=== PATIENT | female | born 1985 | race Two or more races ===

== ENCOUNTER 2024-03-28 14:05 | Observation (INO) | payer MEDICAID, SELFPAY ==
[2024-03-28 14:05] VITALS: BP 117/71; PULSE 93; RESP 17; RESP 98; TEMP 36.9
[2024-03-28 14:10] VITALS: BMI 38.5
[2024-03-28 14:25] VITALS: BP 117/71; PULSE 93
--- NOTE | 2024-03-28 15:01 | P.TNLD_ITS ---
Documentation for date of: 03/28/24 Hx History Provider: Dalia Burk : 4 Para: 3 Number of Living Children: 3 # of Vaginal Deliveries:: 3 Hx Section: No Hx Vaginal Delivery Post : No Gestation Info Final ELIZA: 07/19/24 Gestational Age (weeks): 23 Gestational Age (days): 6 Complaint Complaint Complaint: Vaginal bleeding Medical History Medical History Medical History: Pt noticed a small amount of VB today. No UCs, NO LOF, No r ecent intercourse. On presentation, Pad is dry. Hx PPH with first delivery with transfusion. 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 Systems Assessment Systems With in Normal Limits: Yes Contractions Evaluation Contractions Monitor Mode: External Contraction Frequency: None Resting Tone Palpate: Soft Contraction Comment: No UCs seen on NST Vaginal Bleeding Vaginal Bleeding Amount: None Heart Monitoring Heart Rate Assessment Monitor Mode: External FHR Baseline: 120 Variability: Minimal Monitor Decelerations: None FHR Pattern Category: Category l Movement Reported: Yes NST Reactive: Yes WNL for GA: Yes Assessment Comment: Reassuring FHTs for 23 weeks Amniotic Membranes Amniotic Membranes Amniotic Membrane Status: Intact Social risk screen Social Risk Screening Observed or verbalized signs of abuse or neglect: No Behavioral Health Professional Referral: No
== END 2024-03-28 15:18 | disposition home or self-care (01) ==
PROVIDERS: Admitting Provider Obstetrics & Gynecology; Visit Provider Obstetrics & Gynecology
DX: O46.92 Antepartum hemorrhage, unspecified, second trimester (principal); Z3A.23 23 weeks gestation of pregnancy
CPT/HCPCS: 59025; 59899

== ENCOUNTER 2024-04-01 17:54 | Observation (INO) | payer MEDICAID, SELFPAY ==
[2024-04-01] VITALS (12 sets, daily range): BP systolic 118; BP diastolic 71; PULSE 78–86; RESP 18–98; TEMP 36.8; O2SAT 97–98; BMI 37.6
--- NOTE | 2024-04-01 18:31 | XR_ITS ---
Examination: age limited TECHNIQUE: Limited transabdominal sonographic images pelvis INDICATIONS: Vaginal bleeding beginning 5 days ago FINDINGS: No placental abruption Small placental venous britt 18 x 11 x 9 mm IMPRESSION: Negative for placental abruption
--- NOTE | 2024-04-01 18:32 | XR_ITS ---
Examination: OB Transvaginal ultrasound of the pelvis, complete Technique: Transvaginal sonographic images pelvis performed using anderson scale imaging Exam date and time: April 01, 2024 at 7:24 PM Indications: Vaginal bleeding for 5 days FINDINGS: Cervix 3.8 cm IMPRESSION: Cervix 3.8 cm closed
[2024-04-01 19:44] LABS: Collection Type, Urine Clean Catch
[2024-04-01 19:47] LABS: Bilirubin,Urine Negative (Negative); Blood,Urine Negative (Negative); Clarity,Urine Clear (Clear/Hazy); Color,Urine Lt-Yellow (Lt Yel-Yel); Glucose, Urine Negative (Negative); Ketones,Urine Negative (Negative); Leukocyte Esterase,Urine Positive (Negative); Nitrite,Urine Negative (Negative); Protein,Urine Negative (Neg - Trace); RBC,Urine 1 /hpf (0-3); Specific Gravity,Urine 1.011 (1.001-1.035); Squamous Epithelial Cell,Urine 3 /hpf (0-5); Urobilinogen,Urine Negative mg/dL (0.0-1.0); WBC,Urine 3 /hpf (0-5)
== END 2024-04-01 21:15 | disposition home or self-care (01) ==
PROVIDERS: Admitting Provider Obstetrics & Gynecology; Visit Provider Obstetrics & Gynecology
DX: O46.92 Antepartum hemorrhage, unspecified, second trimester (principal); Z3A.24 24 weeks gestation of pregnancy
CPT/HCPCS: 59025; 59899; 76815; 76817; 81001

== ENCOUNTER 2024-07-10 14:49 | Outpatient (RCR) | payer MEDICAID, SELFPAY ==
--- NOTE | 2024-06-12 15:48 | XR_ITS ---
Examination: Biophysical profile, ultrasound Date and time of exam: June 12, 2024 1614 hrs. Indications: Diagnosis advanced maternal age, diagnosis maternal obesity Technique: Multiple transabdominal sonographic images of the pelvis abdomen obtained. Attention is directed to the breathing movement, gross body movement, amniotic fluid volume and tone. Findings: Amniotic fluid index 11.1 cm Total biophysical profile is 8 of 8. breathing movement is 2. Gross body movement is 2. tone is 2. Qualitative amniotic fluid volume is 2 Impression: Biophysical profile is 8 of 8.
[2024-06-12 16:31] VITALS: BP 125/83; PULSE 85; RESP 16; TEMP 36.7
--- NOTE | 2024-06-19 16:06 | XR_ITS ---
Examination: Biophysical profile, ultrasound Date and time of exam: June 19, 2024 at 1612 hrs. Indications: Diagnosis advanced maternal age Technique: Multiple transabdominal sonographic images of the pelvis abdomen obtained. Attention is directed to the breathing movement, gross body movement, amniotic fluid volume and tone. Findings: Amniotic fluid index 7.1 cm Total biophysical profile is 8 of 8. breathing movement is 2. Gross body movement is 2. tone is 2. Qualitative amniotic fluid volume is 2 Impression: Biophysical profile is 8 of 8.
[2024-06-19 16:47] VITALS: BP 122/79; PULSE 86; RESP 16; TEMP 36.7
--- NOTE | 2024-06-26 15:59 | XR_ITS ---
Examination: Biophysical profile, ultrasound Date and time of exam: June 26, 2024 1601 hours INDICATIONS: Diagnosis maternal obesity, diagnosis advanced maternal age Technique: Multiple transabdominal sonographic images of the pelvis abdomen obtained. Attention is directed to the breathing movement, gross body movement, amniotic fluid volume and tone. Findings: Amniotic fluid index 10.4 cm Total biophysical profile is 8 of 8. breathing movement is 2. Gross body movement is 2. tone is 2. Qualitative amniotic fluid volume is 2 Impression: Biophysical profile is 8 of 8.
[2024-06-26 16:27] VITALS: BP 118/71; PULSE 83; RESP 16; TEMP 36.7
--- NOTE | 2024-07-03 14:21 | XR_ITS ---
Examination: Biophysical profile, ultrasound Date and time of exam: July 03, 2024 1428 hours INDICATIONS: Diagnosis maternal obesity, diagnosis advanced maternal age Technique: Multiple transabdominal sonographic images of the pelvis abdomen obtained. Attention is directed to the breathing movement, gross body movement, amniotic fluid volume and tone. Findings: Amniotic fluid index 12.7 cm Total biophysical profile is 8 of 8. breathing movement is 2. Gross body movement is 2. tone is 2. Qualitative amniotic fluid volume is 2 Impression: Biophysical profile is 8 of 8.
[2024-07-03 14:51] VITALS: BP 132/77; PULSE 77; RESP 16; TEMP 36.8
--- NOTE | 2024-07-10 14:54 | XR_ITS ---
Examination: Biophysical profile, ultrasound Date and time of exam: July 10, 2024 1501 hours INDICATIONS: Diagnosis advanced maternal age, diagnosis maternal obesity complicating Technique: Multiple transabdominal sonographic images of the pelvis abdomen obtained. Attention is directed to the breathing movement, gross body movement, amniotic fluid volume and tone. Findings: Amniotic fluid index 18.6 cm Total biophysical profile is 8 of 8. breathing movement is 2. Gross body movement is 2. tone is 2. Qualitative amniotic fluid volume is 2 Impression: Biophysical profile is 8 of 8.
[2024-07-10 15:18] VITALS: BP 114/70; PULSE 81; RESP 16; TEMP 36.7
== END 2024-07-10 23:59 | disposition home or self-care (01) ==
LOC: S4S1 14:49
PROVIDERS: Referring Provider Nurse Practitioner Women's Health; Visit Provider Nurse Practitioner Women's Health
DX: O09.523 Supervision of elderly multigravida, third trimester (principal); Z3A.38 38 weeks gestation of pregnancy
CPT/HCPCS: 59025; 76819

== ENCOUNTER 2024-07-17 18:20 | Inpatient (IN) | payer MEDICAID, SELFPAY ==
[2024-07-17] VITALS (18 sets, daily range): BP systolic 120–123; BP diastolic 67–76; PULSE 70–87; TEMP 37.1; O2SAT 97–99; BMI 39.3
--- NOTE | 2024-07-17 19:32 | XR_ITS ---
Examination: Complete OB ultrasound greater than 14 weeks Date and time of exam: July 17, 2024 2045 hours INDICATIONS: Preop labor induction, and known presentation unknown weight Findings: Viable intrauterine single fetus with single amniotic sac presentation cephalic Cardiac motion 140 BPM Placenta anterior grade 2 Umbilical cord insertion 3 vessel seen Amniotic fluid index 8.2 cm spine maternal left Cervix 3.4 cm Ovaries obscured by bowel gas. Composite estimated gestational age based on BPD, head circumference, abdominal circumference, femur length is 39 weeks 4 days Estimated weight 3877.6 g. Survey of intracranial anatomy, spinal anatomy, abdominal anatomy, four-chamber heart performed with no abnormalities identified. Impression: Viable intrauterine gestation cephalic presentation.
[2024-07-17 19:38] LABS: Basophils % (Auto) 0 % (0-2.5); Eosinophils % (Auto) 1 % (0-10); Hemoglobin 12.5 g/dL (12.0-16.0); Immature Granulocytes % (Auto) 2 % (0-0); Immature Granulocytes Auto 0.13 Thou/mm3 (0.00-0.00); Lymphocytes # (Auto) 1.8 Thou/mm3 (1.0-4.8); Lymphocytes % (Auto) 25 % (10-50); Mean Corpuscular HGB Conc 34.7 g/dl (31.0-37.0); Mean Corpuscular Hemoglobin 32.8 pg (25.0-35.0); Mean Corpuscular Volume 95 fL (80-100); Monocytes # (Auto) 0.4 Thou/mm3 (0.0-0.8); Monocytes % (Auto) 6 % (0-12); Neutrophils # (Auto) 4.8 Thou/mm3 (1.8-7.7); Neutrophils % (Auto) 67 % (37-80); Nucleated Red Blood Cell % 0 /100 WBC (0); Platelet Count 154 Thou/mm3 (140-440); RDW Standard Deviation 49.8 fL (36.4-46.3); Red Blood Count 3.81 Miln/mm3 (4.00-5.20); White Blood Count 7.2 Thou/mm3 (3.6-11.0)
--- NOTE | 2024-07-17 20:00 | ESHP_ITS ---
Documentation for date of: 07/17/24 OB Labor/Induct. HPI History of Present Illness Chief complaint: 39 y/o 39w 5d presents to L&D for IOL due to AMA and Obesity : 4 Para: 3 Term pregnancies: 3 pregnancies: 0 Living children: 3 History of Abortions: Spontaneous and Elective: 0 History of Vaginal deliveries: 3 History of sections: No History of : No Date of last menstrual period: 10/13/23 ELIZA: 07/19/24 Gestational Age (weeks): 39 Gestational Age (days): 5 Gestational age based on last menstrual period: 39 Indication for induction: medical complication (AMA and Obesity ) History of present illness: 39 y/o 39w 5d presents to L&D for IOL due to AMA and Obesity. Pt is 3/60/-3 vetrex, GBS is neg. Pt's has been complicated by AMA of 40 and Obesit y. Pt has a hx of NVDx3, last delivery pt had a PPH with blood transfusion and retained placenta. Pt was seen by [facility] on 06/13/24 fetus measuring 83%ile, EFW 2870g, AC >90%ile. LGA fetus Pt has been having weekly NST/BPP since 34 weeks and all have been normal. EFW 3900g History of Present Dating criteria: LMP confirmed by 1st trimester US Adequate Care: Yes Ultrasounds: normal 1st trimester US and normal mid trimester US Obstetrical complications: other (AMA and Obesity ) Medical complications: none Labs Maternal Blood Type: O Pos Labs: Positive: Rubella Titre, Negative: RPR, Hepatitis B, HIV, Chlamydia, Gonorrhea and Group Beta Strep and Unknown: Herpes Type 1, Herpes Type 2 and Covid-19 Review of Systems Review of Systems Systems Reviewed: All systems reviewed, normal except as documented Past Medical History Surgical History SURGICAL: Negative Section Meds Home Medications and Allergies Home Medications ?Medication ?Instructions ?Recorded ?Confirmed ?Type aspirin 81 mg chewable tablet 1 tab PO QDAY 03/28/24 0 07/17/24 History folic acid 1 mg tablet 1 mg PO QDAY 03/28/24 History vits no.130-ferrous fum 1 tab PO QDAY 5 07/17/24 History 27 mg iron-folic acid 800 mcg tablet ( Vitamin) Allergies Allergy/AdvReac Type Severity Reaction Status Date / Time No Known Drug Allergies Allergy Verified 07/17/24 19:28 OB Exam Physical Exam Vital signs: Pulse BP 81 122/71 07/17/24 19:30 07/17/24 19:30 Constitutional Constitutional: no acute distress Routine HEENT Exam Head: Present normocephalic and atraumatic Eye: Present EOMI, PERRL and normal accommodation ENT: Present mucous membranes moist Routine Neck Exam Neck: Present full ROM Routine Respiratory Exam Respiratory: Absent respiratory distress Routine Cardiovascular Exam Cardiovascular: Present RRR Routine Abdominal Exam Abdominal: Present soft Comments: Gravid Uterus EFW 3900g Routine Exam External: Present normal urethra appearance; Absent lesions Detailed Labor and Delivery Exam Dilation (cm): 3 Effacement (%): 60 Cervix position: posterior station: -3 Consistency: soft Presentation: Vertex Membranes: intact Baseline heart rate: 130 monitor accelerations: 15x15 monitor decelerations: None maintenance coordinator variability: Moderate (11-25) Contraction frequency (min): occasional Routine Extremities Exam Extremities: Present full ROM Routine Back/Spine/Pelvis Exam Back/Spine: Present full ROM Routine Skin Exam Skin: Present intact, dry and warm Routine Neurological Exam Neurological: Present alert, oriented X3 and CN II-XII intact Routine Psychiatric Exam Psychiatric: Present normal affect and normal thought process OB Results Labs 07/17/24 18:40 07/17/24 19:50 Labs: Short CBC 07/17/24 Range/Units 18:40 WBC 7.2 (3.6-11.0) Thou/mm3 Hgb 12.5 (12.0-16.0) g/dL Hct 36.0 (36.0-46.0) % Plt Count 154 (140-440) Thou/mm3 OB Assessment & Plan Assessment and Plan (1) Encounter for induction of labor: Status: Acute (2) with 39 completed weeks gestation: Status: Acute (3) History of hemorrhage: Status: Acute (4) Large for gestational age fetus affecting mother, antepartum, third trimester, single gestation: Status: Acute Additional Plan Induction method: per misoprostol protocol Plan: induction, anticipate NVD and consult MD obrien Additional Plan Comment: Routine admit orders 2 units pRBCs on hold Start a 2nd IV PPH meds at bedside US to confirm head and EFW Continuous EFM Consult anesthesia for an epidural
[2024-07-17 21:06] LABS: Collection Type, Urine Clean Catch
[2024-07-17] MEDS: MISOPROSTOL 50 mCg TABLET PO (21:29)
[2024-07-17 21:48] LABS: Fibrinogen 523 mg/dL (175-375); INR 0.9 (0.9-1.3); Prothrombin Time 9.8 Seconds (9.0-12.2)
[2024-07-17 21:50] LABS: Bilirubin,Urine Negative (Negative); Blood,Urine 2+ (Negative); Clarity,Urine Clear (Clear/Hazy); Color,Urine Lt-Yellow (Lt Yel-Yel); Glucose, Urine Negative (Negative); Ketones,Urine Negative (Negative); Leukocyte Esterase,Urine Negative (Negative); Nitrite,Urine Negative (Negative); PH,Urine 6.5 (5.0-7.0); Protein,Urine Negative (Neg - Trace); RBC,Urine < 1 /hpf (0-3); Specific Gravity,Urine 1.014 (1.001-1.035); Squamous Epithelial Cell,Urine 2 /hpf (0-5); Urobilinogen,Urine Negative mg/dL (0.0-1.0); WBC,Urine 1 /hpf (0-5)
[2024-07-17] MEDS: RINGERS LACTATED 1000 ML 1,000 ML 100 ML IV (22:12)
[2024-07-17 22:53] LABS: Creatinine,Random Urine 72 mg/dL (30-125); Protein Total, Random Urine 16 mg/dL (1-14)
[2024-07-17 22:57] LABS: Alanine Aminotransferase 23 U/L (10-49); Albumin, Serum 3.9 gm/dL (3.5-5.0); Albumin/Globulin Ratio 1.5 (1.2-2.2); Alkaline Phosphatase 173 U/L (46-116); Anion Gap 17 (7-16); Aspartate Amino Transferase 31 U/L (0-34); BUN/Creatinine Ratio 15 Ratio (12-20); Bilirubin,Total 0.3 mg/dL (0.3-1.2); Blood Urea Nitrogen 15 mg/dL (9-23); Calcium 9.1 mg/dL (8.3-10.6); Calcium (Corrected) 9.2 mg/dL (8.5-10.1); Carbon Dioxide 19.4 mMol/L (20.0-31.0); Chloride 106 mMol/L (98-107); Estimated Creatinine Clearance 84.7 mL/min (>60); Globulin 2.6 gm/dL (2.3-3.5); Glucose 158 mg/dL (74-106); Osmolality,Calculated 286 (275-295); Potassium 4.1 mMol/L (3.4-5.1); Sodium 142 mMol/L (136-145); Total Protein 6.5 gm/dL (5.7-8.2); Uric Acid 5.8 mg/dL (3.1-7.8); eGFR > 60 See Note
[2024-07-17 23:16] LABS: Syphilis Nonreactive (Nonreactive)
[2024-07-18] VITALS (50 sets, daily range): BP systolic 113–142; BP diastolic 76–116; PULSE 71–119; RESP 17–20; TEMP 36.6–37.1; O2SAT 91–100
[2024-07-18] MEDS: OXYTOCIN in NS 20 units 20 UNIT/1,000 ML BAG 125 UNIT IV (03:05)
[2024-07-18] MEDS: TRANEXAMIC ACID 1,000 MG IVPB 1,000 MG/100 ML BAG 200 MG IV ×2 (03:07→03:45)
--- NOTE | 2024-07-18 03:20 | PD.LDDELS ---
Data (Corey) Data Hx Section: No Maternal Blood Type: O Pos Rubella Titre: Positive RPR: Non-reactive Labs: Negative: RPR, Hepatitis B, HIV, Chlamydia, Gonorrhea and Group Beta Strep and Unknown: Herpes Type 1 and Herpes Type 2 : 4 Para: 3 Term: 3 : 0 Livin Abortions: Spontaneous & Theraputic: 0 Delivery Data (Corey) Labor Data Initiation of labor: Induction Induction/Augmentation Agent: Cytotec-PO ROM date: 07/18/24 ROM time: 02:49 Amniotic membrane rupture type: Artificial Amniotic fluid description: Clear Delivery Data EDC: 07/19/24 EDC calculated by:: LMP/early US confirmation Onset of labor date: 07/18/24 Onset of labor time: 01:35 Complete dilation date: 07/18/24 Complete dilation time: 02:35 Doucette delivery date: 07/18/24 Doucette delivery time: 02:51 Gestational age (weeks): 39 Gestational age (days): 6 Placenta delivery date: 07/18/24 Stage 1 total time: Labor - Stage 1 Duration 1 hours and 0 minutes Delivered by: Dalia Burk Delivery nurse: daja Fenton nurse: Annette Program Director Substance Abuse at delivery: No Support person(s) at delivery: FOB at bedside Delivery Method Delivery method: Normal Vaginal Delivery Presentation: Vertex position: OA Anesthesia Type Anesthesia Type: Local Anesthesia type: Local Placenta Placenta delivery description: Spontaneous Cord blood sent to lab: Yes cord blood collection: Cord Blood Type Episiotomy Episiotomy description: None Lacerations #1: Perineal: 1st degree Perineal repair Sutures used for repair: 3.0 Vicryl (CT) EBL Estimated blood loss (ml): 400 Umbilical Cord cord description: 3 Vessels, Nuchal Cord and Loose Additional Procedures CNM in room open patient was complete. AROM performed clear fluids noted. After a few pushes patient had an of a viable female . 's head delivered with a loose nuchal cord easily reduced. Then 's anterior shoulder delivered with gentle downward traction subsequent deliver the posterior shoulder and the body without complications. Infant placed on mother's abdomen. Vigorous cry upon delivery. Cord was clamped. Three-vessel cord noted. Placenta expelled intact. Patient sustained a first-degree perineal laceration. Repaired using a 3-[address] suture. Excellent hemostasis achieved after vigorous fundal massage and removal of clots from the posterior fornix. EBL 400. Sponge and needle count correct. Mother and baby stable, skin to skin and bonding in LDR. Doucette Data (Corey) Data order: 1 's gender: Female Identification band number: [id number] weight (gms): 3715 g 1 minute: 8 5 minutes: 9
[2024-07-18] MEDS: MINERAL OIL 30 ML UDC TOP (03:29)
[2024-07-18] MEDS: LIDOCAINE HCL 1% 20 ML VIAL INFL (03:29)
[2024-07-18] MEDS: BENZO/LANO/ALOE (Dermoplast) 60 GM CAN 1 SPRAY TOP (03:31)
[2024-07-18] MEDS: METHYLERGONOVINE INJ 0.2 MG/ML VIAL IM (03:32)
[2024-07-18] MEDS: IBUPROFEN TAB 400 MG TABLET 800 MG PO ×2 (03:35→18:27)
[2024-07-18] MEDS: DOCUSATE SOD 100 MG CAPSULE PO (08:32)
[2024-07-18] MEDS: HYDROcodone/APAP 5/325 TABLET 1 TAB PO (08:36)
[2024-07-18 09:59] LABS: Basophils % (Auto) 0 % (0-2.5); Eosinophils % (Auto) 0 % (0-10); Hematocrit 26.6 % (36.0-46.0); Hemoglobin 9.3 g/dL (12.0-16.0); Immature Granulocytes % (Auto) 1 % (0-0); Lymphocytes # (Auto) 1.4 Thou/mm3 (1.0-4.8); Lymphocytes % (Auto) 13 % (10-50); Mean Corpuscular Hemoglobin 32.3 pg (25.0-35.0); Mean Corpuscular Volume 92 fL (80-100); Monocytes # (Auto) 0.6 Thou/mm3 (0.0-0.8); Monocytes % (Auto) 6 % (0-12); Neutrophils # (Auto) 8.5 Thou/mm3 (1.8-7.7); Neutrophils % (Auto) 79 % (37-80); Nucleated Red Blood Cell % 0 /100 WBC (0); Platelet Count 129 Thou/mm3 (140-440); RDW Standard Deviation 47.9 fL (36.4-46.3); Red Blood Count 2.88 Miln/mm3 (4.00-5.20); White Blood Count 10.8 Thou/mm3 (3.6-11.0)
[2024-07-18 19:16] LABS: Basophils % (Auto) 0 % (0-2.5); Eosinophils % (Auto) 1 % (0-10); Hematocrit 25.3 % (36.0-46.0); Immature Granulocytes % (Auto) 1 % (0-0); Immature Granulocytes Auto 0.12 Thou/mm3 (0.00-0.00); Lymphocytes # (Auto) 1.6 Thou/mm3 (1.0-4.8); Lymphocytes % (Auto) 18 % (10-50); Mean Corpuscular HGB Conc 34.8 g/dl (31.0-37.0); Mean Corpuscular Hemoglobin 32.2 pg (25.0-35.0); Mean Corpuscular Volume 93 fL (80-100); Monocytes # (Auto) 0.4 Thou/mm3 (0.0-0.8); Monocytes % (Auto) 5 % (0-12); Neutrophils # (Auto) 6.5 Thou/mm3 (1.8-7.7); Neutrophils % (Auto) 75 % (37-80); Nucleated Red Blood Cell % 0 /100 WBC (0); Platelet Count 127 Thou/mm3 (140-440); RDW Standard Deviation 48.6 fL (36.4-46.3); Red Blood Count 2.73 Miln/mm3 (4.00-5.20); White Blood Count 8.7 Thou/mm3 (3.6-11.0)
[2024-07-18 19:18] LABS: Hemoglobin 8.8 g/dL (12.0-16.0)
[2024-07-18] MEDS: HYDROCORTISONE ACET CR 2.5% 30 GM TUBE PR (20:20)
[2024-07-19] VITALS: BP 121/78; PULSE 84; RESP 19; TEMP 37.1; O2SAT 97
[2024-07-19 03:04] LABS: Basophils % (Auto) 0 % (0-2.5); Eosinophils # (Auto) 0.1 Thou/mm3 (0.0-0.5); Eosinophils % (Auto) 1 % (0-10); Hematocrit 24.9 % (36.0-46.0); Immature Granulocytes % (Auto) 2 % (0-0); Immature Granulocytes Auto 0.16 Thou/mm3 (0.00-0.00); Lymphocytes # (Auto) 2.2 Thou/mm3 (1.0-4.8); Lymphocytes % (Auto) 25 % (10-50); Mean Corpuscular HGB Conc 34.1 g/dl (31.0-37.0); Mean Corpuscular Volume 94 fL (80-100); Monocytes # (Auto) 0.4 Thou/mm3 (0.0-0.8); Monocytes % (Auto) 5 % (0-12); Neutrophils % (Auto) 68 % (37-80); Nucleated Red Blood Cell % 0 /100 WBC (0); Platelet Count 128 Thou/mm3 (140-440); RDW Standard Deviation 50.3 fL (36.4-46.3); Red Blood Count 2.66 Miln/mm3 (4.00-5.20); White Blood Count 8.8 Thou/mm3 (3.6-11.0)
[2024-07-19 04:04] LABS: Hemoglobin 8.5 g/dL (12.0-16.0)
--- NOTE | 2024-07-19 07:12 | PD.LDDS ---
DS: Providers Provider Date of admission: 07/17/24 18:20 Primary care physician: Physician No Primary/Family Admitting Provider: Dalia Burk CNM Attending Provider on Admission: Dalia Burk CNM Attending Provider on DC: Dalia Burk CNM Discharging Provider: Dalia Burk CNM Anticipated date of discharge: 07/19/24 DS: Diagnosis Discharge Diagnosis (1) Normal spontaneous vaginal delivery: Status: Acute (2) Encounter for care of lactating mother: Status: Acute (3) Encounter for induction of labor: Status: Acute (4) Large for gestational age fetus affecting mother, antepartum, third trimester, single gestation: Status: Acute Problem List Completed Was Problem List Reviewed/Reconciled?: Yes Summary/Hosp Course Brief History: 39 y/o 39w 5d presents to L&D for IOL due to AMA and Obesity. Pt is 360/-3 vetrex, GBS is neg. Pt's has been complicated by AMA of 40 and Obesity. Pt has a hx of NVDx3, last delivery pt had a PPH with blood transfusion and retained placenta. Pt was seen by [facility] on 06/13/24 fetus measuring 83%ile, EFW 2870g, AC >90%ile. LGA fetus Pt has been having weekly NST/BPP since 34 weeks and all have been normal. EFW 3900g 07/18/24: CNM in room open patient was complete. AROM performed clear fluids noted. After a few pushes patient had an of a viable female infant. 's head delivered with a loose nuchal cord easily reduced. Then 's anterior shoulder delivered with gentle downward traction subsequent deliver the posterior shoulder and the body without complications. placed on mother's abdomen. Vigorous cry upon delivery. Cord was clamped. Three-vessel cord noted. Placenta expelled intact. Patient sustained a first-degree perineal laceration. Repaired using a 3-[address] suture. Excellent hemostasis achieved after vigorous fundal massage and removal of clots from the posterior fornix. EBL 400. Sponge and needle count correct. Mother and baby stable, skin to skin and bonding in LDR. 07/19/24: PPD#1 patient is stable and doing well. Patient denies dizziness shortness of breath. Ambulating to the bathroom with no problems. Uterus is nontender fundus firm minimal lochia. Discharge instructions given. Patient to follow-up with Andra Burk CNM in 3 weeks Peripartum Data Delivery Method: Normal Vaginal Delivery Episiotomy Description: None Laceration Description: yes and see Delivery Summary complications: none 1: Gender: Female Disposition of : home Status at Discharge Cognitive/behavioral status at discharge: Alert and oriented x 3 Functional status at discharge: independent ambulation Overall status at discharge: patient is progressing back to baseline Time Spent with Patient Time attestation: Total time spent providing and/or coordinating discharge services: Time spent: Greater than 30 minutes Exam Vital Signs Temp Pulse BP Pulse Ox 98.7 F 89 137/116 H 92 L 07/17/24 22:25 07/18/24 03:06 07/18/24 03:06 07/18/24 03:24 Constitutional Constitutional: no acute distress Routine HEENT Exam Head: Present normocephalic and atraumatic Eye: Present EOMI, PERRL and normal accommodation ENT: Present mucous membranes moist Routine Neck Exam Neck: Present supple, full ROM and trachea midline Routine Respiratory Exam Respiratory: Present chest non-tender, lungs clear, normal breath sounds and no resp distress Routine Cardiovascular Exam Cardiovascular: Present RRR Routine Abdominal Exam Abdominal: Present soft and normoactive bowel sounds Comments: Uterus nontender Fundus firm Routine Exam Patient deferred: external exam Routine Extremities Exam Extremities: Present full ROM Routine Back/Spine/Pelvis Exam Back/Spine: Present full ROM Routine Skin Exam Skin: Present intact, dry and warm Routine Neurological Exam Neurological: Present alert, oriented X3 and CN II-XII intact Routine Psychiatric Exam Psychiatric: Present normal affect and normal thought process Discharge Plan Plan Patient Disposition: HOME (Self Care) Patient condition on transfer: Stable Prescriptions/Referrals Prescriptions/Med Rec: New ibuprofen 800 mg tablet 800 mg PO Q6H MDD 4 PRN (Reason: pain) Qty: 90 0RF docusate sodium [Colace] 100 mg capsule 100 mg PO BID Qty: 60 0RF lanolin 50 % ointment 1 applic topical TID PRN (Reason: skin irritation) Qty: 15 0RF hydrocortisone [Proctosol HC] 2.5 % cream with perineal applicator 1 applic LA QDAY PRN (Reason: hemorrhoids) Qty: 30 0RF Tucks (witch ayse) 50 % pads, medicated 1 pad topical BID Qty: 100 0RF Continued albuterol sulfate 90 mcg/actuation HFA aerosol inhaler 1 puff IH QID PRN (Reason: shortness of breath or wheezing) Qty: 8.5 0RF Discontinued aspirin 81 mg tablet,chewable 1 tab PO QDAY folic acid 1 mg tablet 1 mg PO QDAY No Action Vitamin 27 mg iron- 800 mcg tablet 1 tab PO QDAY Referrals: No Primary/Family,Physician [Primary Care Provider] - Patient/Caregiver Discharge Instructions Meds to Beds: No Discharge Activity: activity as tolerated Other Discharge Activity Instructions:: Follow-up with Dalia Burk CNM in 3 weeks Education Materials: After a Vaginal , : Caring for Yourself Print Language: American Stand Alone Forms: Adela Award Info., Patient Portal Info Letter, Work/Release Restrictions Discharge Order Discharge Orders: Discharge (Routine); Ordered 07/19/24 Ordered By: Dalia Burk Planned Discharge Date 07/19/24
[2024-07-19 08:45] VITALS: BP 103/69; PULSE 93; RESP 18; TEMP 36.9; O2SAT 97
[2024-07-19] MEDS: DOCUSATE SOD 100 MG CAPSULE PO (08:50)
[2024-07-19] MEDS: IBUPROFEN TAB 400 MG TABLET 800 MG PO (08:50)
[2024-07-19] MEDS: HYDROCORTISONE ACET CR 2.5% 30 GM TUBE PR (08:50)
== END 2024-07-19 14:50 | disposition home or self-care (01) | DRG 560 ==
LOC: S4SX 07-18 07:07 → S4NX 07-18 07:08 → S4SX 07-18 07:09
PROVIDERS: Admitting Provider Nurse Practitioner Women's Health; Visit Provider Nurse Practitioner Women's Health
DX: O99.214 Obesity complicating childbirth (principal); Z37.0 Single live birth; Z3A.39 39 weeks gestation of pregnancy; O36.63X0 Maternal care for excessive fetal growth, third trimester, not applicable or unspecified; O70.0 First degree perineal laceration during delivery; O69.81X0 Labor and delivery complicated by cord around neck, without compression, not applicable or unspecified
CPT/HCPCS: 36415; 76805; 80053; 81001; 82570; 84156; 84550; 85025; 85384; 85610; 85730; 86780; 86850; 86900; 86901; 86923; J2210; J2590; J2795; J3010; J3490; J7120; A9270